=== PATIENT | male | born 1990 | race Caucasian/White ===

== ENCOUNTER 2017-02-05 20:43 | Emergency (ER) | payer MEDICARE ==
[2017-02-05] MEDS: BUPIVACAINE HCL/PF 5 MG/ML 10ML VIAL IJ ONE (21:19)
[2017-02-05] MEDS: AMOXICILLIN 500 MG CAPSULE PO ONE (21:19)
--- NOTE | 2017-02-05 21:21 | ED Physician Documentation ---
Sore Throat/Dental Pain - HISTORIAN Historian: patient - HPI Stated Complaint: Dental pain Chief Complaint: Dental Pain Additional Information: Broken tooth left mandible. Has taken excedrin, vicodin, ibuprofen. - ROS CONST: no problems - PAST HX Past History: none Allergies/Adverse Reactions: Allergies Allergy/AdvReac Type Severity Reaction Status Date / Time tramadol AdvReac Intermediate Dizziness Verified 02/05/17 20:52 Home Medications: Ambulatory Orders Medication Instructions Recorded HYDROcodone /APAP 5/325 [[place] 1 each PO Q4 PRN #18 tablet 02/05/17 5/325] Penicillin V Potassium [Pen V K] 500 mg PO Q8H #30 tablet 02/05/17 - SOCIAL HX Smoking History: cigarettes - FAMILY HX Family History: No - VITAL SIGNS Vital Signs: Vital Signs Temp Pulse Resp BP Pulse Ox 99.6 F 94 H 16 147/96 98 02/05/17 20:53 02/05/17 20:53 02/05/17 20:53 02/05/17 20:53 02/05/17 20:53 - REVIEWED ASSESSMENTS Nursing Assessment Reviewed: Yes Vitals Reviewed: Yes ED Results Lab/Radiology - Orders Orders: ED Orders Category Date Time Status Amoxicillin [Amoxil] Med 02/05/17 21:11 Once 500 mg PO NOW ONE Bupivacaine HCl/Pf [[place] 0.5%] Med 02/05/17 21:09 Once 50 mg IJ NOW ONE Dental Pain Physical Exam - EXAM General Appearance: alert, mild distress Head/Neck: head nml inspection, cervical lymphadenopathy (1+ left ant, tender to palp) Eyes: eyes nml inspection Mouth/Throat: lips nml, pharynx nml, voice nml, no drooling, other (#19 with 50 % visible tooth absent, gingival erythema. No abscess id'ed) Ear/Nose: nml inspection Respiratory: no resp. distress, breath sounds nml CVS: reg. rate & rhythm Extremities: nml ROM (gait) Skin: warm/dry, normal color Neuro/Psych: anxiety. No: weakness Discharge Clincal Impression: Pain due to dental caries Fractured tooth Qualifiers: Encounter type: initial encounter Fracture type: closed Qualified Code(s): S02.5XXA - Fracture of tooth (traumatic), initial encounter for closed fracture Prescriptions: HYDROcodone /APAP 5/325 [[place] 5/325] 1 each PO Q4 PRN #18 tablet PRN Reason: Pain Penicillin V Potassium [Pen V K] 500 mg PO Q8H #30 tablet Referrals: Primary Doctor,No [Primary Care Provider] - 2 Days Home Medications: Ambulatory Orders HYDROcodone /APAP 5/325 [[place] 5/325] 1 each PO Q4 PRN #18 tablet 02/05/17 Penicillin V Potassium [Pen V K] 500 mg PO Q8H #30 tablet 02/05/17 Condition: Good Disposition: 01 HOME, SELF-CARE Decision to Admit: NO Decision Time: 21:20
[2017-02-05 21:35] VITALS: BP 132/84
== END 2017-02-05 21:33 | disposition home or self-care (01) ==
LOC: ED 20:43
DX: S02.5XXA Fracture of tooth (traumatic), initial encounter for closed fracture (principal); X58.XXXA Exposure to other specified factors, initial encounter; Y93.9 Activity, unspecified; Y99.9 Unspecified external cause status
CPT/HCPCS: 96372; 99283; J3490

== ENCOUNTER 2017-02-07 13:26 | Emergency (ER) | payer MEDICARE, OTHER ==
[2017-02-07 13:39] VITALS: BP 160/91
[2017-02-07] MEDS ORDERED: CLINDAMYCIN PHOSPHATE 300 MG/2 ML VIAL IM ONE (13:41)
[2017-02-07] MEDS ORDERED: KETOROLAC TROMETHAMINE 30 MG/1ML VIAL IM ONE (13:42)
--- NOTE | 2017-02-07 13:44 | ED Physician Documentation ---
Sore Throat/Dental Pain - HISTORIAN Historian: patient - HPI Chief Complaint: Dental Pain Additional Information: dental caries and dental pain. Was here 2 days ago and has been on PCN. "not getting better" has had similar before. Onset: days ago Context: Dental Caries, Possible Infection Associated Symptoms: denies: fever, chills Worsened By: heat, cold Further Comments: no - ROS CONST: no problems CVS/RESP: none GI/: denies: problems urinating, nausea MS/SKIN/LYMPH: denies: muscle aches NEURO/PSYCH: none. denies: headache - PAST HX Past History: none Other History: none Allergies/Adverse Reactions: Allergies Allergy/AdvReac Type Severity Reaction Status Date / Time tramadol AdvReac Intermediate Dizziness Verified 02/07/17 13:34 Home Medications: Ambulatory Orders Medication Instructions Recorded Penicillin V Potassium [Pen V K] 500 mg PO Q8H #30 tablet 02/05/17 - SOCIAL HX Smoking History: cigarettes Alcohol Use: occasionally Drug Use: none - FAMILY HX Family History: No - VITAL SIGNS Vital Signs: Vital Signs Temp Pulse Resp BP Pulse Ox 132/84 02/05/17 21:33 - REVIEWED ASSESSMENTS Nursing Assessment Reviewed: Yes Vitals Reviewed: Yes Progress - Results/Orders Results/Orders: he was told to follow up with a dentist in 1 week after starting this new antibiotic(clindamycin). He may discontinue the PCN. Dental Pain Physical Exam - EXAM General Appearance: no acute distress, alert Head/Neck: head nml inspection, no lymphadenopathy. No: cervical lymphadenopathy Eyes: eyes nml inspection Mouth/Throat: lips nml, gum swelling around teeth, widespread dental decay Respiratory: no resp. distress Abdomen: soft Extremities: non-tender Skin: warm/dry, normal color Neuro/Psych: No: weakness, numbness Discharge Clincal Impression: Dental caries, Acute apical periodontitis Referrals: Primary Doctor,No [Primary Care Provider] - 2 Days Home Medications: Ambulatory Orders Penicillin V Potassium [Pen V K] 500 mg PO Q8H #30 tablet 02/05/17 Condition: Stable Disposition: 01 HOME, SELF-CARE Decision to Admit: NO Date of Decison to Admit: 02/07/17 Decision Time: 13:41
== END 2017-02-07 13:55 | disposition home or self-care (01) ==
LOC: ED 13:26
DX: K02.9 Dental caries, unspecified (principal); K05.5 Other periodontal diseases
CPT/HCPCS: J1885; J3490; 96372; 99283

== ENCOUNTER 2018-05-05 04:41 | Emergency (ER) | payer SELFPAY ==
[2018-05-05 05:14] VITALS: BP 139/99
--- NOTE | 2018-05-05 05:46 | ED Physician Documentation ---
General Adult - HISTORIAN Historian: patient - HPI Stated Complaint: abd pain Chief Complaint: General Adult Additional Information: Intermittent sharp epigastri pain for > 5 months. Has been taking 40 mg omeprazole daily but still has the pain. Better if he drinks milk and worse if he eats spicy foods. Saw his provider 04/23 but didn't mention this. Smokes 1/2 PPD. No other modifying factors or associated events. - ROS CONST: no problems - PAST HX Past History: hypertension (doesn't know what med he takes), other (bipolar, insomnia) Allergies/Adverse Reactions: Allergies Allergy/AdvReac Type Severity Reaction Status Date / Time tramadol AdvReac Intermediate Dizziness Verified 05/05/18 04:59 Home Medications: Ambulatory Orders Medication Instructions Recorded Bupropion HCl [Bupropion HCl Sr] 150 mg PO D 05/05/18 Hydrocodone/Acetaminophen [[place] 1 tab PO TID 05/05/18 5-325 Tablet] Lamotrigine [Lamictal] 100 mg PO D 05/05/18 Lansoprazole [Prevacid] 15 mg PO DAILY #30 capsule. 05/05/18 Omeprazole 40 mg PO D 05/05/18 - SOCIAL HX Smoking History: cigarettes - FAMILY HX Family History: Yes (breast cancer) - VITAL SIGNS Vital Signs: Vital Signs Temp Pulse Resp BP Pulse Ox 98.6 F 72 16 139/99 97 05/05/18 04:42 05/05/18 04:42 05/05/18 04:42 05/05/18 04:42 05/05/18 04:42 - REVIEWED ASSESSMENTS Nursing Assessment Reviewed: Yes Vitals Reviewed: Yes General Adult Physical Exam - PHYSICAL EXAM GENERAL APPEARANCE: no distress EENT: eye inspection normal, ENT inspection normal (many absent teeth) NECK: normal inspection, supple RESPIRATORY: breath sounds normal CVS: reg rate & rhythm, no murmur ABDOMEN: soft, normal bowel sounds, no distension, non-tender BACK: normal inspection SKIN: warm/dry, normal color EXTREMITIES: normal range of motion, no evidence of injury NEURO: CN's nml as tested, motor nml, sensation nml Discharge Clincal Impression: Heartburn Prescriptions: Lansoprazole [Prevacid] 15 mg PO DAILY #30 capsule. Referrals: Primary Doctor,No [Primary Care Provider] - 2 Days Condition: Good Disposition: 01 HOME, SELF-CARE Decision to Admit: NO Decision Time: 05:44
== END 2018-05-05 05:50 | disposition home or self-care (01) ==
LOC: ED 04:41
DX: R12 Heartburn (principal)
CPT/HCPCS: 99283